=== PATIENT | male | born 1960 | race Caucasian/White ===

== ENCOUNTER 2020-07-23 16:25 | Emergency (ER) | payer SELFPAY ==
--- NOTE | 2020-07-23 16:33 | ED.SKABFB ---
HPI - Skin/Abscess/Foreign Bdy General Chief complaint: Skin/Abscess/Foreign Body Stated complaint: foreign object in skin Source: patient and RN notes reviewed Mode of arrival: ambulatory Limitations: no limitations History of Present Illness HPI narrative: 59-year-old male presents with concern for possible foreign body in his left forearm. Reports yesterday he slid down a hill landing on his arm. He reports a scab that is a possible puncture wound. He did not see any foreign body, did not have any evidence of a foreign body extending from his skin, however reports he can possibly feel a foreign body under his skin. He reports he clean the area with peroxide. He reports surrounding redness and mild tenderness. He denies any musculoskeletal pain, decreased range of motion, sensation, strength in the arm. MD complaint: other (Skin foreign body) Related Data Home Medications Medication Instructions Recorded Confirmed levothyroxine 07/23/20 Allergies Allergy/AdvReac Type Severity Reaction Status Date / Time No Known Allergies Allergy Verified 07/23/20 16:36 Review of Systems Review of Systems: Narrative: CONSTITUTIONAL: Denies malaise, chills, sweats, or fever. SKIN: Scab/puncture wound on his left forearm surrounded by redness and tenderness MUSCULOSKELETAL: Denies musculoskeletal pain NEUROLOGIC: Denies numbness, weakness All systems reviewed & are unremarkable except as noted in HPI and below PMFSH Comments At time of signature, agree with nursing past medical, surgical, social and family history. There is no relevant family history pertinent to the presenting complaint Exam Narrative: Exam Narrative: GENERAL: Well-appearing, well-nourished, and in no acute distress. HEAD: Normocephalic, atraumatic. EYES: PERRLA, conjunctivae clear, and EOMI. ENT: Mucous membranes moist. Oropharynx without edema, erythema or lesions. NECK: Supple. No lymphadenopathy CHEST: Clear to auscultation. No respiratory distress. HEART: Regular rate and rhythm. SKIN: Warm, dry. Scabbed area noted to the left forearm with mild induration, 3 cm of surrounding erythema and tenderness. No foreign body visible or directly palpated. NEURO: Alert and oriented x3. PSYCH: Normal mood and affect Course Course Emergency Course: Discussed with patient difficulty in diagnosing foreign body at the [facility], discussed that a wood splinter would likely not show on x-ray. Discussed options of transfer to emergency room, attempting to see a foreign body on x-ray, following up with primary care doctor. Patient prefers to follow-up with his primary care doctor, we discussed will treat with antibiotics until he can see his primary care doctor. Patient is aware of diagnosis, understands and agrees to treatment plan. Anticipatory guidance given. Patient agrees to follow-up as directed and is aware of reasons to seek care at the emergency department. Portions of this record may have been created with voice recognition software Vital Signs Vital signs: Vital Signs Temperature 99.7 F H 07/23/20 16:36 Pulse Rate 75 07/23/20 16:36 Respiratory Rate 24 H 07/23/20 16:36 Blood Pressure 165/92 H 07/23/20 16:36 Pulse Oximetry 99 07/23/20 16:36 Temperature 99.7 F H 07/23/20 16:36 Pulse Rate 75 07/23/20 16:36 Respiratory Rate 24 H 07/23/20 16:36 Blood Pressure 165/92 H 07/23/20 16:36 Pulse Oximetry 99 07/23/20 16:36 Reviewed. Patient has history of hypertension MDM - Skin/Abscess/Foreign Bdy MDM Narrative Medical decision making narrative: Exam findings show no acute concerns or changes; patient is non-toxic appearing and is in no distress. Patient is appropriate for outpatient treatment and follow-up. Critical Care Time Critical Care Time Critical Care Time: No Discharge Plan Discharge Clinical Impression: Cellulitis Qualifiers: Site of cellulitis: extremity Site of cellulitis of extremity: upper extremity Lateralit
[2020-07-23 16:36] VITALS: BP 165/92; PULSE 75; RESP 24; TEMP 37.6; O2SAT 99
== END 2020-07-23 16:50 | disposition home or self-care (01) ==
PROVIDERS: Emergency Provider Nurse Practitioner
DX: L03.114 Cellulitis of left upper limb (principal); E03.9 Hypothyroidism, unspecified
CPT/HCPCS: 99213; G0463